=== PATIENT | female | born 1980 | race Caucasian/White ===

== ENCOUNTER → 2017-07-06 | Outpatient (CLI) | payer OTHER ==
[2017-07-06 09:49] LABS: HCT 36.1 % (34.0-46.0); HGB 12.5 gm/dL (11.4-16.0); MCH 31.4 pg (25.0-35.0); MCHC 34.6 g/dL (31.0-37.0); MCV 90.6 fL (80.0-100.0); Mean Platelet Volume 7.1; Platelet Count 206 k/uL (150-450); RBC 3.98 m/uL (3.80-5.40); RDW 12.6 % (11.5-15.5); WBC 5.1 k/uL (3.8-10.6)
[2017-07-06 10:08] LABS: Anion Gap 11 mmol/L; Blood Urea Nitrogen 23 mg/dL (7-17); Calcium 9.5 mg/dL (8.4-10.2); Carbon Dioxide 26 mmol/L (22-30); Chloride 105 mmol/L (98-107); Glucose 71 mg/dL (74-99); Sodium 142 mmol/L (137-145)
== END | disposition home or self-care (01) ==
LOC: LABPAT 09:21
PROVIDERS: ATTEND Urology
DX: Z01.812 Encounter for preprocedural laboratory examination (principal); N39.46 Mixed incontinence
CPT/HCPCS: 80048; 85027; 87077; 87086; 87186

== ENCOUNTER 2017-07-14 08:11 | Day surgery (SDC) | payer OTHER ==
[2017-07-11 12:53] VITALS: BMI 23.9
[~2017-07-14 08:11] MED LIST: DEXAMETHASONE SOD PHOSPHATE 10 MG/ML 1 ML VIAL IV ONE; GENTAMICIN 120 MG in SODIUM CHLORIDE 0.9% 100 ML IVPB ONE; LACTATED RINGERS 1,000 ML IV SCH; MIDAZOLAM 2 MG/2 ML VIAL IV PRN; MORPHINE SULFATE 4 MG/ML SYRINGE IV PRN; ceFAZolin IN SWFI 2 GM/20 ML SYRINGE IVP ONE
[2017-07-14] MEDS ORDERED: SCOPOLAMINE 1.5MG/72HR PATCH TRANSDERM STA (09:12)
[2017-07-14] MEDS: ONDANSETRON 4 MG/2 ML VIAL IVP ONE ×2 (09:22→12:30)
[2017-07-14] MEDS: diphenhydrAMINE 50 MG/ML 1 ML VIAL IVP STA ×2 (09:26→12:30)
[2017-07-14] MEDS ORDERED: HYDROmorphone (PF) 1 MG/ML ONE (10:12)
[2017-07-14] MEDS ORDERED: fentaNYL (PF) 50 MCG/ML 2 ML AMP ONE (10:12)
[2017-07-14] MEDS ORDERED: MIDAZOLAM 2 MG/2 ML VIAL ONE (10:12)
[2017-07-14] MEDS ORDERED: PROPOFOL 10 MG/ML 20 ML VIAL IV ONE (10:12)
[2017-07-14] MEDS ORDERED: LIDOCAINE 1% INJ 10MG/ML (20 ML MDV) ONE (10:12)
[2017-07-14] MEDS ORDERED: SUCCINYLCHOLINE CHLORIDE 100 MG/5 ML SYR IV ONE (10:12)
[2017-07-14] MEDS ORDERED: LIDOCAINE 1%-EPI 1:100,000 30 ML VIAL SQ ONE ×2 (10:28)
--- NOTE | 2017-07-14 11:12 | P.OP ---
Date of Procedure: 07/14/17 Preoperative Diagnosis: Mixed Urinary Incontinence Postoperative Diagnosis: Same Procedure(s) Performed: Optryx Subfascial Sling Anesthesia: PANCHO Surgeon: Ismael Bowling Estimated Blood Loss (ml): 30 IV fluids (ml): 700 Pathology: none sent Condition: stable Disposition: PACU Indications for Procedure: She is a 36-year-old woman with a history of mixed urinary incontinence, dating back to childbirth 11 and 13 years ago. 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 She has elected to undergo an Obtryx sling. Operative Findings: No anatomic variation noted. Description of Procedure: The patient was taken to the operating room and placed in the dorsal lithotomy position, with her legs supported in Richard stirrups. The perineum, lower abdomen, and vagina were prepped and draped sterilely. A 16-Saudi Arabian Pitt catheter was placed. 0.5% Marcaine with epinephrine was injected submucosally within the anterior vaginal wall, over the urethra. The scalpel was then used to make an anterior midline vaginal incision over the urethra. Metzenbaum scissors were used to dissect laterally within the submucosal plane, to the inferior pubic ramus. The scalpel was used to make bilateral groin incisions at the level of the clitoris. Subcutaneous tissues were spread with a hemostat. Each of the helical needles were passed through the respective groin incision, and turned such that the needle tip wrapped around the pubis. The needle tips were guided digitally into the vaginal incision. The Obtryx graft, which had been previously soaked in antibiotic solution, was secured to the needle tips in the standard fashion. The needles were then withdrawn, and the position of the graft was adjusted such that it overlie the mid urethra, as desired. With a hemostat placed between the graft and the urethra to prevent tension of the graft over the urethra, the plastic sheath was removed from the ends of the graft. The ends of the graft were cut beneath the skin incisions, and these incisions were closed using 4-0 Vicryl suture in a subcuticular fashion. Hemostasis within the vaginal incision was excellent, and the vaginal incision was closed using 2-0 Vicryl suture in a running fashion. Cystoscopy was performed. The 30 lens was used to introduce the 19-S[place] Arabian Storz cystoscopic sheath through the urethra and into the bladder under direct vision. The urethra and bladder were unremarkable. There was no evidence of perforation. Both ureteral orifices were of normal anatomic location and configuration, and clear urine effluxed from both. No tumors or foreign bodies were seen. The cystoscope was removed, and the Pitt catheter was replaced into the bladder. All sponge and needle counts were correct. The patient tolerated the procedure well was taken to the recovery room in stable condition.
[2017-07-14] MEDS ORDERED: ONDANSETRON 4 MG/2 ML VIAL IVP PRN (11:13)
[2017-07-14] MEDS ORDERED: DEXTROSE 5%-0.45% NACL 1,000 ML IV SCH (11:15)
[2017-07-14] MEDS ORDERED: LACTATED RINGERS 1,000 ML IV ONE (11:40)
[2017-07-14] MEDS ORDERED: KETOROLAC 30 MG/ML 1 ML VIAL IVP ONE (11:51)
[2017-07-14] MEDS ORDERED: LORazepam 0.5 MG TAB PO PRN (13:15)
[2017-07-14] MEDS ORDERED: HYDROcodone/APAP 5-325MG 1 EACH TAB PO PRN (13:15)
[2017-07-14] MEDS: HYDROcodone/APAP 5-325MG 1 EACH TAB PO PRN ×2 (13:56→20:57)
[2017-07-14] MEDS: CEPHALEXIN 500 MG CAP PO SCH (16:49)
[2017-07-14] MEDS: KETOROLAC 30 MG/ML 1 ML VIAL IVP PRN (18:57)
[2017-07-14] MEDS: ACYCLOVIR 200 MG CAP PO SCH (20:54)
[2017-07-15] MEDS: CEPHALEXIN 500 MG CAP PO SCH ×2 (00:01→08:27)
[2017-07-15 00:17] VITALS: RESP 18
[2017-07-15] MEDS: KETOROLAC 30 MG/ML 1 ML VIAL IVP PRN (08:29)
[2017-07-15] MEDS: ACYCLOVIR 200 MG CAP PO SCH (08:47)
[2017-07-15] MEDS ORDERED: MONTELUKAST 10 MG TAB PO SCH (09:00)
[2017-07-15 09:22] VITALS: BP 101/62; PULSE 66; TEMP 98
--- NOTE | 2017-07-15 12:43 | P.DS ---
Providers Expected date of discharge: 07/15/17 Attending physician: Ismael Bowling Primary care physician: Camila Gauthier [facility] Course: On the day of admission, the patient underwent an uncomplicated Obtryx subfascial sling. The postoperative course was unremarkable. She remained afebrile with stable vital signs. The Pitt catheter was removed on the first postoperative day, and she was able to void and empty her bladder adequately. Procedures: Obtryx subfascial sling on 07/14/2017. Patient Condition at Discharge: Good Plan - Discharge Summary Discharge Rx Participant: Yes New Discharge Prescriptions: New Hydrocodone/Acetaminophen [Linwood 5-325] 1 - 2 each PO Q4HR PRN #15 tab PRN Reason: Pain Ibuprofen 600 mg PO RT-Q6H PRN #30 tablet PRN Reason: Mild To Moderate Pain No Action Montelukast [Singulair] 10 mg PO DAILY Magnesium Chloride [Slow-Mag] 64 mg PO DAILY Acyclovir 400 mg PO BID LORazepam [Ativan] 0.5 mg PO BID PRN #8 tab PRN Reason: Anxiety Cephalexin [Keflex] 250 mg PO Q8HR Naproxen 500 mg PO BID Discharge Medication List Acyclovir 400 mg PO BID 12/03/15 [History] LORazepam [Ativan] 0.5 mg PO BID PRN #8 tab 12/03/15 [Rx] Magnesium Chloride [Slow-Mag] 64 mg PO DAILY 12/03/15 [History] Montelukast [Singulair] 10 mg PO DAILY 12/03/15 [History] Cephalexin [Keflex] 250 mg PO Q8HR 07/11/17 [History] Naproxen 500 mg PO BID 07/11/17 [History] Hydrocodone/Acetaminophen [Linwood 5-325] 1 - 2 each PO Q4HR PRN #15 tab 07/15/17 [Rx] Ibuprofen 600 mg PO RT-Q6H PRN #30 tablet 07/15/17 [Rx] Follow up Appointment(s)/Referral(s): Ismael Bowling MD [STAFF PHYSICIAN] - 07/21/17 11:00 am Patient Instructions/Handouts: *Surgery [facility] - Scopalamine Patch Instructions Activity/Diet/Wound Care/Special Instructions: Okay to shower. Diet as tolerated. No lifting, driving, or strenuous activity. No sexual intercourse. No tub baths or soaking. regular diet as tolerated. drink fluids. call office for any fever, chills, increased pain not controlled by pain meds, increased redness or discolored drainage from puncture sites, heavy vaginal bleeding, in ability to urinate or any concerns. Last received Toradol ( same family as motrin) at 0830 urinate at regular intervals. Discharge Disposition: HOME SELF-CARE
[2017-07-15] MEDS: HYDROcodone/APAP 5-325MG 1 EACH TAB PO PRN (13:25)
== END 2017-07-15 14:10 | disposition home or self-care (01) ==
LOC: OR 08:11 → 6PED 11:11 → OR 07-15 14:10
PROVIDERS: ATTEND Urology
DX: N39.46 Mixed incontinence (principal); R35.1 Nocturia; I10 Essential (primary) hypertension; J45.909 Unspecified asthma, uncomplicated; Z86.73 Personal history of transient ischemic attack (TIA), and cerebral infarction without residual deficits; F39 Unspecified mood [affective] disorder; Z91.048 Other nonmedicinal substance allergy status; Z85.828 Personal history of other malignant neoplasm of skin; Z82.49 Family history of ischemic heart disease and other diseases of the circulatory system; Z88.5 Allergy status to narcotic agent; Z87.891 Personal history of nicotine dependence; Z79.2 Long term (current) use of antibiotics; Z79.1 Long term (current) use of non-steroidal anti-inflammatories (NSAID); Z79.899 Other long term (current) drug therapy; Z90.710 Acquired absence of both cervix and uterus; Z90.79 Acquired absence of other genital organ(s); Z90.722 Acquired absence of ovaries, bilateral; Z96.653 Presence of artificial knee joint, bilateral
CPT/HCPCS: 57288; C1771; J2250; J1200; J1100; J2405; J2001; J3010; J1885 ×2; J1580; J1170; J0330; J2704; J0690

== ENCOUNTER → 2018-01-11 | Outpatient (CLI) | payer OTHER ==
[2018-01-11 07:51] LABS: HCT 39.7 % (34.0-46.0); HGB 12.8 gm/dL (11.4-16.0); MCH 31.1 pg (25.0-35.0); MCHC 32.2 g/dL (31.0-37.0); MCV 96.4 fL (80.0-100.0); Mean Platelet Volume 6.6; Platelet Count 217 k/uL (150-450); RBC 4.12 m/uL (3.80-5.40); RDW 12.3 % (11.5-15.5); WBC 5.4 k/uL (3.8-10.6)
[2018-01-11 08:11] LABS: ALT 23 U/L (9-52); AST 21 U/L (14-36); Alkaline Phosphatase 39 U/L (38-126); Anion Gap 9 mmol/L; Blood Urea Nitrogen 18 mg/dL (7-17); Calcium 9.4 mg/dL (8.4-10.2); Carbon Dioxide 26 mmol/L (22-30); Chloride 107 mmol/L (98-107); Creatine Kinase 60 U/L (30-135); GGT 15 U/L (12-43); LDH 340 U/L (313-618); Potassium 4.4 mmol/L (3.5-5.1); Sodium 142 mmol/L (137-145); Uric Acid 5.1 mg/dL (3.7-7.4)
[2018-01-11 08:19] LABS: T4, Free (Free Thyroxine) 0.87 ng/dL (0.78-2.19)
[2018-01-11 08:47] LABS: Erythrocyte Sedimentation Rate 5 mm/hr (0-20)
[2018-01-11 10:57] LABS: Glucose 2 Hour 93 mg/dL
[2018-01-11 16:24] LABS: Protein, Total 6.9 g/dL (6.2-8.2); Rheumatoid Factor 6 IU/mL (0-15)
[2018-01-11 16:37] LABS: Folate, Serum 18.1 ng/mL
[2018-01-11 20:05] LABS: Hemoglobin A1C 4.6 % (4.0-6.0)
[2018-01-12 11:15] LABS: Gamma Globulin 0.91 g/dL (0.70-1.50)
== END | disposition home or self-care (01) ==
LOC: LABWHC1 07:17
PROVIDERS: ATTEND Physical Medicine & Rehabilitation
DX: G60.3 Idiopathic progressive neuropathy (principal); M13.80 Other specified arthritis, unspecified site; R25.2 Cramp and spasm; E55.9 Vitamin D deficiency, unspecified; Z13.1 Encounter for screening for diabetes mellitus; Z79.899 Other long term (current) drug therapy
CPT/HCPCS: 36415; 80051; 82306; 82310; 82550; 82565; 82607; 82746; 82947; 82950; 82977; 83036; 83615; 83735; 84075; 84165; 84207; 84439; 84443; 84450; 84460; 84520; 84550; 85027; 85652; 86038; 86431